=== PATIENT | female | born 1945 | race African-American/Black ===

== ENCOUNTER 2024-04-18 01:46 | Emergency (ER) | payer OTHER ==
[~2024-04-18] VITALS: Ht 162.6 cm; Wt 96.0 kg
[2024-04-18 01:55] VITALS: O2SAT 96
[2024-04-18] MEDS: ACETAMINOPHEN 325MG TABLET PO ONE (02:45)
[2024-04-18 03:15] LABS: CHLORIDE 108 mEq/L (98-107); POTASSIUM 3.6 mEq/L (3.5-5.1); SODIUM 142 mEq/L (136-145)
[2024-04-18 03:16] LABS: CALCIUM 9.2 mg/dL (8.7-10.4); CARBON DIOXIDE 28 mEq/L (21-32)
[2024-04-18 03:21] LABS: CREATININE 0.8 mg/dL (0.6-1.0); GLUCOSE 147 mg/dL (70-105); PROTHROMBIN TIME 11.3 sec (9.6-11.0); UREA NITROGEN BLOOD 13 mg/dL (9-23)
[2024-04-18 03:32] LABS: HEMATOCRIT. 41.1 % (36.0-48.0); HEMOGLOBIN. 12.9 g/dL (12.0-16.0); MEAN CORPUSCULAR HEMOGLOBIN 28.7 pg (28.0-32.0); MEAN CORPUSCULAR HGB CONC 31.3 g/dL (31.0-37.0); MEAN CORPUSCULAR VOLUME 91.8 fL (81.0-99.0); MEAN PLATELET VOLUME 7.4 fl (7.4-10.4); PLATELET 259 x1000/uL (130-400); RED BLOOD CELL COUNT 4.48 mill/uL (4.2-5.4); RED CELL DISTRIBUTION WIDTH 14.3 % (11.6-14.6); WHITE BLOOD COUNT 12.5 x1000/uL (4.5-11.0)
[2024-04-18] MEDS: ONDANSETRON HCL 4MG/2ML INJ IV ONE (03:47)
[2024-04-18] MEDS: SODIUM CHLORIDE 0.9% 500 ML IV ONE (04:00)
[2024-04-18 04:32] LABS: DIFFERENTIAL COMMENT 1
[2024-04-18] MEDS: POLYETHYLENE GLYCOL-ELECTROLYTE 4000ML PO ONE (04:32)
[2024-04-18] MEDS: KETOROLAC 15MG/ML VIAL IV ONE (04:38)
[2024-04-18] MEDS ORDERED: DOCU-138 MT (05:22)
[2024-04-18 06:12] VITALS: BP 134/69; PULSE 100; RESP 16; TEMP 36.72516; O2SAT 98
[2024-04-18 12:47] LABS: PLATELET ESTIMATE NORMAL
== END 2024-04-18 06:29 | disposition home or self-care (01) ==
LOC: EDSEX 01:46 → ER 02:23
DX: R10.9 Unspecified abdominal pain (principal); I10 Essential (primary) hypertension; E11.9 Type 2 diabetes mellitus without complications; Z98.890 Other specified postprocedural states
CPT/HCPCS: 99285; 74176; 96374; 96361; 96375; 80048; 83690; 85025; 85610; 36415; J1885; J7040